=== PATIENT | female | born 1960 | race American Indian/Alaskan Native ===

== ENCOUNTER 2017-07-16 12:56 | Outpatient (CLI) | payer OTHER ==
--- NOTE | 2017-07-16 14:09 | XRay Report ---
ROUTINE CHEST, TWO VIEWS: HISTORY: Cough. The trachea, heart, mediastinal contour, lung hendrix and bony thorax are unremarkable. IMPRESSION: Unremarkable chest x-ray.
== END 2017-07-16 12:57 | disposition home or self-care (01) ==
LOC: XRAY 12:56
PROVIDERS: ATTEND Internal Medicine
DX: R05 Cough (principal)
CPT/HCPCS: 71046